=== PATIENT | male | born 1990 | race Caucasian/White ===

== ENCOUNTER 2016-12-15 19:48 | Emergency (ER) | payer BC ==
[2016-12-15] MEDS ORDERED: Ketorolac 30 MG/ML SDV IM ONE (20:06)
[2016-12-15] MEDS ORDERED: Acetaminophen/oxyCODONE 325-5 MG Tab PO ONE ×2 (20:08→20:57)
[2016-12-15] MEDS ORDERED: Acetaminophen/oxyCODONE 325-5 MG Tab ONE (20:56)
[2016-12-15] MEDS ORDERED: Cyclobenzaprine 10 MG Tab PO ONE (20:57)
[2016-12-15] MEDS ORDERED: Cyclobenzaprine 10 MG Tab ONE (20:57)
--- NOTE | 2016-12-15 21:01 | EDM.PDOC ---
ED HPI GENERAL MEDICAL PROBLEM - General Chief Complaint: Back Pain or Injury Stated Complaint: SEVERE BACK PAIN, [id number] Time Seen by Provider: 12/15/16 20:00 Source of Information: Reports: Patient History Limitations: Reports: No Limitations - History of Present Illness INITIAL COMMENTS - FREE TEXT/NARRATIVE: c/o low back pain on right side radiating to right buttock, started yesterday. Denies injury. Pain worse with sitting, Unable to lie flat at home, most comfortable standing. Has tried ibuprofen last at 4 pm without relief. No difficultly with voiding. Hx of intermittent low back pain but not as severe and usually relieved with ibuprofen. 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 [No Known Home Meds] 12/15/16 [History] Past Medical History HEENT History: Reports: None Cardiovascular History: Reports: None Respiratory History: Reports: None Gastrointestinal History: Reports: None Genitourinary History: Reports: None Musculoskeletal History: Reports: None Neurological History: Reports: None Endocrine/Metabolic History: Reports: None Hematologic History: Reports: None Immunologic History: Reports: None Oncologic (Cancer) History: Reports: None Dermatologic History: Reports: None Social & Family History - Tobacco Use Smoking Status *Q: Heavy Tobacco Smoker Years of Tobacco use: 5 Packs/Tins Daily: 0.5 - Caffeine Use Caffeine Use: Reports: None - Recreational Drug Use Recreational Drug Use: No ED ROS GENERAL - Review of Systems Review Of Systems: See Below Constitutional: Reports: No Symptoms HEENT: Reports: No Symptoms Respiratory: Reports: No Symptoms Cardiovascular: Reports: No Symptoms GI/Abdominal: Reports: No Symptoms : Reports: No Symptoms Musculoskeletal: Reports: Back Pain Skin: Reports: No Symptoms Neurological: Reports: No Symptoms. Denies: Numbness, Paresthesia, Tingling, Weakness, Gait Disturbance ED EXAM,LOWER BACK PAIN/INJURY - Physical Exam Exam: See Below Exam Limited By: No Limitations General Appearance: Alert, Moderate Distress, Obese Eye Exam: Bilateral Eye: EOMI Ears: Normal External Exam Nose: Normal Inspection Throat/Mouth: Normal Inspection Neck: Normal Inspection, Full Range of Motion Respiratory/Chest: No Respiratory Distress, Lungs Clear Cardiovascular: Regular Rate, Rhythm GI/Abdominal: Normal Bowel Sounds, Soft Back Exam: Paraspinal Tenderness, Other (Tender with palpation SI). No: CVA Tenderness (L), CVA Tenderness (R), Vertebral Tenderness Extremities: Normal Inspection Neurological: Alert, Normal Mood/Affect, Normal Plantar Flexion, Normal Gait, No Motor/Sensory Deficits, Oriented x 3, Straight Leg Raise (R). No: Abnormal Gait Psychiatric: Normal Affect Skin Exam: Warm, Dry, Intact, Normal Color Course - Vital Signs Last Recorded V/S: Last Vital Signs Temp 98.2 F 12/15/16 19:56 Pulse 87 12/15/16 21:05 Resp 18 12/15/16 21:05 BP 138/94 H 12/15/16 21:05 Pulse Ox 98 12/15/16 21:05 - Orders/Labs/Meds Meds: Medications Discontinued Medications Generic Name Dose Route Start Last Admin Trade Name Maniq PRN Reason Stop Dose Admin Cyclobenzaprine HCl Confirm 12/15/16 20:57 12/15/16 21:07 Flexeril Administered 12/15/16 20:58 Not Given Dose 10 mg .ROUTE .STK-MED ONE Ketorolac Tromethamine 30 mg 12/15/16 20:06 12/15/16 20:12 Toradol IM 12/15/16 20:07 30 mg ONETIME ONE Administration Orphenadrine Citrate 60 mg 12/15/16 20:05 12/15/16 20:13 Norflex IM 12/15/16 20:06 60 mg ONETIME ONE Administration Oxycodone/Acetaminophen 1 tab 12/15/16 20:08 12/15/16 20:18 Percocet 325-5 Mg PO 12/15/16 20:09 1 tab ONETIME ONE Administration Oxycodone/Acetaminophen Confirm 12/15/16 20:56 12/15/16 21:07 Percocet 325-5 Mg Administered 12/15/16 20:57 Not Given Dose 2 tab .ROUTE .STK-MED ONE Departure - Departure Time of Disposition: 20:57 Disposition: Home, Self-Care 01 Condition: good Clinical Impression: Back pain of lumbar region with sciatica - Discharge Information Instructions: Back Pain, Adult, [id number] Forms: ED Department Discharge Additional Instructions: rest flexeril 10mg one every 8 hours as needed for back pain # 7 Percocet 5/325 one every 6 hours as needed for severe pain #8 Ibuprofen 600mg one every 6 hours as needed for pain follow up in clinic next week May return to work if improved on 12/17/16 Off work tomorrow to REST
[2016-12-15 21:08] VITALS: BP 138/94
== END 2016-12-15 21:04 | disposition home or self-care (01) ==
LOC: DL.ED 19:48
DX: M54.41 Lumbago with sciatica, right side (principal); F17.210 Nicotine dependence, cigarettes, uncomplicated; Z88.1 Allergy status to other antibiotic agents; Z88.8 Allergy status to other drugs, medicaments and biological substances
CPT/HCPCS: 96372; 99283; A9270; J1885; J2360

== ENCOUNTER 2019-03-10 19:53 | Emergency (ER) | payer BC ==
[2019-03-10 20:41] VITALS: BP 140/91
[2019-03-10] MEDS ORDERED: Clindamycin Phosphate 900 MG in Sodium Chloride 0.9% 100 ML IV ONE (21:54)
[2019-03-10] MEDS ORDERED: methylPREDNISolone Sodium Succinate 125 MG/2 ML SDV IVPUSH ONE (21:54)
--- NOTE | 2019-03-10 22:00 | EDM.PDOC ---
ED HPI GENERAL MEDICAL PROBLEM - General Chief Complaint: Skin Complaint Stated Complaint: POISON RAMONA Time Seen by Provider: 03/10/19 21:55 Source of Information: Reports: Patient History Limitations: Reports: No Limitations - History of Present Illness INITIAL COMMENTS - FREE TEXT/NARRATIVE: exposed to poison ramona last night flared up badly tonight. 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 [No Known Home Meds] 12/15/16 [History] Past Medical History HEENT History: Reports: None Cardiovascular History: Reports: None Respiratory History: Reports: None Gastrointestinal History: Reports: None Genitourinary History: Reports: None Musculoskeletal History: Reports: Fracture Neurological History: Reports: None Endocrine/Metabolic History: Reports: None Hematologic History: Reports: None Immunologic History: Reports: None Oncologic (Cancer) History: Reports: None Dermatologic History: Reports: None - Past Surgical History Musculoskeletal Surgical History: Reports: Other (See Below) Other Musculoskeletal Surgeries/Procedures:: left wrist surgery Social & Family History - Family History Family Medical History: Noncontributory - Tobacco Use Smoking Status *Q: Current Every Day Smoker Years of Tobacco use: 12 Packs/Tins Daily: 1 Used Tobacco, but Quit: No Second Hand Smoke Exposure: Yes - Caffeine Use Caffeine Use: Reports: Soda - Recreational Drug Use Recreational Drug Use: No ED ROS GENERAL - Review of Systems Review Of Systems: ROS reveals no pertinent complaints other than HPI. ED EXAM, SKIN/RASH Exam: See Below Exam Limited By: No Limitations General Appearance: Alert, WD/WN, No Apparent Distress Ears: Hearing Grossly Normal Throat/Mouth: Normal Voice, No Airway Compromise Head: Atraumatic Neck: Non-Tender, Full Range of Motion Respiratory/Chest: No Respiratory Distress Cardiovascular: Regular Rate, Rhythm GI/Abdominal: Soft, Non-Tender Extremities: Other (right mid cellulits prox phalanx, NV wnl) Neurological: Alert, Oriented, Normal Cognition, Normal Gait, No Motor/Sensory Deficits Psychiatric: Normal Affect, Normal Mood Skin: Warm, Dry, Normal Color Location, Skin: Upper Extremity, Right Characteristics: Erythematous Associated features: Tenderness, Inflammation, Crusting, Weeping. No: Lymphangitis Lymphatic: No Adenopathy Course - Vital Signs Last Recorded V/S: Last Vital Signs Temp 37.4 C 03/10/19 20:39 Pulse 107 H 03/10/19 20:39 Resp 18 03/10/19 20:39 BP 140/91 H 03/10/19 20:39 Pulse Ox 95 03/10/19 20:39 - Orders/Labs/Meds Orders: Active Orders 24 hr Category Date Time Status CULTURE WOUND [RM] Stat Lab 03/10/19 20:38 Received Meds: Medications Discontinued Medications Generic Name Dose Route Start Last Admin Trade Name Freq PRN Reason Stop Dose Admin Clindamycin Phosphate 900 mg/ 106 mls @ 200 mls/hr 03/10/19 21:54 03/10/19 22 :15 Sodium Chloride IV 03/10/19 22:25 200 mls/hr ONETIME ONE Administration Methylprednisolone Sodium Succinate 125 mg 03/10/19 21:54 03/10/19 22:13 Solu-Medrol IVPUSH 03/10/19 21:55 125 mg ONETIME ONE Administration Departure - Departure Time of Disposition: 23:00 Disposition: Home, Self-Care 01 Condition: Good Clinical Impression: Cellulitis and abscess of finger, unspecified - Discharge Information Instructions: Cellulitis, Adult, [id number] Referrals: PCP,None [Primary Care Provider] - Forms: ED Department Discharge Additional Instructions: 1) keep sores clean dry covered 2) follow up at clinic rx given medrol dospak clindamycin 300mg qid x 40 - My Orders Last 24 Hours: My Active Orders 03/10/19 20:38 CULTURE WOUND [RM] Stat - Assessment/Plan Last 24 Hours: My Active Orders 03/10/19 20:38 CULTURE WOUND [RM] Stat
== END 2019-03-10 23:04 | disposition home or self-care (01) ==
LOC: DL.ED 19:53
DX: L02.511 Cutaneous abscess of right hand (principal); L03.011 Cellulitis of right finger; F17.210 Nicotine dependence, cigarettes, uncomplicated; Z88.1 Allergy status to other antibiotic agents
CPT/HCPCS: 87070; 96365; 96375; 99283; J2930; J3490; J7050; 87077; 87186